=== PATIENT | female | born 1930 | race Caucasian/White ===

== ENCOUNTER 2016-09-14 08:14 | Inpatient (IN) | payer MEDICARE, BC, OTHER ==
[2016-08-31 10:47] VITALS: BMI 24.2
[2016-08-31 11:31] VITALS: BP_SYST 108; RESP 20; TEMP 98.2
[2016-09-11 12:52] VITALS: BMI 24.2
[~2016-09-14] VITALS: Ht 160 cm; Wt 62.0 kg
[2016-09-14] VITALS (18 sets, daily range): BP systolic 59–133; RESP 11–20; TEMP 97.3–98.6; Ht 160 cm; Wt 62.0 kg
[2016-09-14] MEDS ORDERED: ROPIVACAINE 0.5% 139 MG, EPINEPHrine 1:1,000 0.2 MG, KETOROLAC INJ 30 MG, MORPHINE 10 MG SUBQ ONE ×4 (08:20)
[2016-09-14] MEDS ORDERED: VANCOMYCIN 1,000 MG in SODIUM CHLORIDE 0.9% 250 ML IV ONE (08:25)
[2016-09-14] MEDS ORDERED: SODIUM CHLORIDE 0.9% IV ONE ×4 (08:30)
[2016-09-14] MEDS ORDERED: TRANEXAMIC ACID IV ONE ×4 (08:30)
[2016-09-14] MEDS ORDERED: LIDOCAINE 1% BUFFERED 1 ML SYR INTRADERM PRN (08:35)
[2016-09-14] MEDS ORDERED: MIDAZOLAM 2 MG/2 ML INJ IV ONE (08:35)
[2016-09-14] MEDS ORDERED: LACT RINGERS 1,000 ML IV SCH (08:35)
[2016-09-14] MEDS ORDERED: GLYCOPYRROLATE 0.2 MG/ML VIAL IV ONE ×2 (08:35→09:55)
[2016-09-14] MEDS ORDERED: ONDANSETRON 4 MG VIAL IV PRN (09:45)
[2016-09-14] MEDS ORDERED: MEPERIDINE 25 MG/ML IV PRN (09:45)
[2016-09-14] MEDS ORDERED: OXYCODONE 5 MG TAB PO PRN (09:45)
[2016-09-14] MEDS ORDERED: MORPHINE 2 MG/ML SYR IV PRN (09:45)
[2016-09-14] MEDS ORDERED: MORPHINE 4 MG/ML SYR IV PRN (09:45)
[2016-09-14] MEDS ORDERED: DILAUDID 1 MG/ML AMP IV PRN (09:45)
[2016-09-14] MEDS ORDERED: DEXAMETHASONE 4 MG/ML VIAL IV ONE (09:55)
[2016-09-14] MEDS ORDERED: ACETAMINOPHEN 1,000 MG/100 ML IV ONE (09:55)
[2016-09-14] MEDS ORDERED: FENTANYL 100 MCG/2 ML AMP IV ONE (09:55)
[2016-09-14] MEDS ORDERED: PROPOFOL 20 ML PER ML IV ONE (09:55)
[2016-09-14] MEDS ORDERED: NEOSTIGMINE 10 MG/10 ML VIAL IV ONE (09:55)
[2016-09-14] MEDS ORDERED: ROCURONIUM 50 MG VIAL IV ONE (09:55)
[2016-09-14] MEDS ORDERED: LIDOCAINE 2% SYR 5 ML IV ONE (09:55)
[2016-09-14] MEDS ORDERED: PHENYLEPHRINE 10 MG/ML VIAL IV ONE (09:55)
[2016-09-14] MEDS ORDERED: ONDANSETRON 4 MG VIAL IV PUSH ONE (09:55)
[2016-09-14] MEDS ORDERED: ROPIVACAINE 5 MG/ML 30 ML EPIDURAL ONE (10:01)
[2016-09-14] MEDS ORDERED: D5-1/2-NS W/KCL 20MEQ/L 1,000 ML IV SCH (11:45)
[2016-09-14] MEDS ORDERED: MAG HYDROX 30 ML UDC PO PRN (11:45)
[2016-09-14] MEDS ORDERED: ONDANSETRON 4 MG TAB PO PRN (11:45)
[2016-09-14] MEDS ORDERED: SALINE FLUSH 10 ML FLUSH PRN (11:45)
[2016-09-14] MEDS ORDERED: TEMAZEPAM 7.5 MG CAP PO PRN (11:45)
[2016-09-14] MEDS: PHARMACY TO DOSE VANCOMYCIN IV SCH ×2 (13:16→23:45)
[2016-09-14] MEDS ORDERED: BACITRACIN 50,000 UNITS INJ IRRIG ONE (14:00)
[2016-09-14] MEDS ORDERED: SUCRALFATE 1 GM TAB PO SCH (17:00)
[2016-09-14] MEDS: SALINE FLUSH 10 ML FLUSH SCH (20:00)
[2016-09-14] MEDS: ONDANSETRON 4 MG VIAL IV PRN (20:44)
[2016-09-14] MEDS: VANCOMYCIN 1,000 MG in SODIUM CHLORIDE 0.9% 250 ML IV SCH (20:45)
[2016-09-14] MEDS: MORPHINE 4 MG/ML SYR IV PRN (20:45)
[2016-09-14] MEDS: DOCUSATE SOD 100 MG CAP PO SCH (21:00)
[2016-09-15] VITALS (8 sets, daily range): BP systolic 109–132; RESP 16–20; TEMP 97.4–98.3
[2016-09-15] MEDS: MORPHINE 4 MG/ML SYR IV PRN ×2 (02:29→05:44)
[2016-09-15] MEDS: ONDANSETRON 4 MG VIAL IV PRN (02:29)
[2016-09-15] MEDS ORDERED: SUCRALFATE 1GM/10ML SUSP PO ONE (03:00)
[2016-09-15] MEDS ORDERED: MISSING DOSE XX ONE (03:20)
[2016-09-15] MEDS: KETOROLAC 15 MG/ML VIAL IV PRN ×2 (03:35→14:58)
[2016-09-15] MEDS: PROMETHAZINE 25 MG TAB PO PRN (03:35)
[2016-09-15] MEDS: SODIUM CHLORIDE 0.9% FLUSH BAG 500 ML IV SCH ×2 (05:43→22:50)
[2016-09-15] MEDS: FONDAPARINUX 2.5 MG SYR SUBQ SCH (05:45)
[2016-09-15] MEDS: MORPHINE 2 MG/ML SYR IV PRN ×2 (06:44→19:21)
[2016-09-15] MEDS: SUCRALFATE 1GM/10ML SUSP PO SCH ×3 (06:44→15:02)
[2016-09-15] MEDS: SALINE FLUSH 10 ML FLUSH SCH ×2 (08:00→21:23)
[2016-09-15] MEDS: DOCUSATE SOD 100 MG CAP PO SCH ×2 (08:16→21:22)
[2016-09-15] MEDS: VANCOMYCIN 1,000 MG in SODIUM CHLORIDE 0.9% 250 ML IV SCH (08:16)
[2016-09-15] MEDS: SENNA 8.6 MG TAB PO SCH ×2 (08:16→21:22)
[2016-09-15] MEDS: MULTIVITS/MINERALS (THERAGRAN M) TAB PO SCH (08:16)
[2016-09-15] MEDS: POLYETHYLENE GLYCOL 17 GM PACKET PO SCH (08:16)
[2016-09-15] MEDS: MAG HYDROX 30 ML UDC PO SCH (08:16)
[2016-09-15] MEDS ORDERED: BISACODYL 10 MG SUPP RECTAL PRN (12:20)
[2016-09-15] MEDS ORDERED: FLEET ENEMA 132 ML BTL RECTAL PRN (12:20)
[2016-09-15] MEDS: Propranolol 10 MG TAB PO SCH (21:22)
[2016-09-16] MEDS: MORPHINE 2 MG/ML SYR IV PRN (00:18)
[2016-09-16] MEDS: KETOROLAC 15 MG/ML VIAL IV PRN (01:32)
[2016-09-16 04:29] VITALS: BP_SYST 102; RESP 18; TEMP 98.1
[2016-09-16] MEDS: SUCRALFATE 1GM/10ML SUSP PO SCH ×3 (05:58→16:43)
[2016-09-16] MEDS: FONDAPARINUX 2.5 MG SYR SUBQ SCH (05:59)
[2016-09-16 07:31] VITALS: BP_SYST 107; RESP 14; TEMP 98.2
[2016-09-16] MEDS: MAG HYDROX 30 ML UDC PO SCH (08:04)
[2016-09-16] MEDS: SENNA 8.6 MG TAB PO SCH ×2 (08:04→20:47)
[2016-09-16] MEDS: MULTIVITS/MINERALS (THERAGRAN M) TAB PO SCH (08:04)
[2016-09-16] MEDS: SALINE FLUSH 10 ML FLUSH SCH ×2 (08:04→20:47)
[2016-09-16] MEDS: Propranolol 10 MG TAB PO SCH ×2 (08:04→20:47)
[2016-09-16] MEDS: DOCUSATE SOD 100 MG CAP PO SCH ×2 (08:04→20:47)
[2016-09-16] MEDS: POLYETHYLENE GLYCOL 17 GM PACKET PO SCH (08:05)
[2016-09-16 11:32] VITALS: BP_SYST 96; RESP 16; TEMP 98.1
[2016-09-16 15:23] VITALS: BP_SYST 115; RESP 16; TEMP 98.3
[2016-09-16] MEDS ORDERED: MISSING DOSE XX ONE (17:55)
[2016-09-16] MEDS: PROMETHAZINE 25 MG TAB PO PRN (18:09)
[2016-09-16 19:45] VITALS: BP_SYST 124; RESP 18; TEMP 98.2
[2016-09-16] MEDS ORDERED: ZOLPIDEM 5 MG TAB PO PRN (21:10)
[2016-09-16 22:44] VITALS: BP_SYST 121; RESP 16; TEMP 98.3
[2016-09-17] VITALS (7 sets, daily range): BP systolic 80–126; RESP 16–20; TEMP 97.4–98.1
[2016-09-17] MEDS: SODIUM CHLORIDE 0.9% FLUSH BAG 500 ML IV SCH ×2 (06:00→23:34)
[2016-09-17] MEDS: SUCRALFATE 1GM/10ML SUSP PO SCH ×3 (06:44→16:07)
[2016-09-17] MEDS: FONDAPARINUX 2.5 MG SYR SUBQ SCH (06:44)
[2016-09-17] MEDS: SALINE FLUSH 10 ML FLUSH SCH ×2 (08:00→20:00)
[2016-09-17] MEDS: DOCUSATE SOD 100 MG CAP PO SCH ×2 (09:00→20:54)
[2016-09-17] MEDS: SENNA 8.6 MG TAB PO SCH ×2 (09:00→20:54)
[2016-09-17] MEDS: MAG HYDROX 30 ML UDC PO SCH (09:00)
[2016-09-17] MEDS: POLYETHYLENE GLYCOL 17 GM PACKET PO SCH (09:00)
[2016-09-17] MEDS: MULTIVITS/MINERALS (THERAGRAN M) TAB PO SCH (09:59)
[2016-09-17] MEDS: Propranolol 10 MG TAB PO SCH ×2 (10:00→20:58)
[2016-09-18 04:31] VITALS: BP_SYST 148; TEMP 98.1
[2016-09-18 04:32] VITALS: RESP 20
[2016-09-18] MEDS: SUCRALFATE 1GM/10ML SUSP PO SCH ×3 (06:18→16:57)
[2016-09-18] MEDS: FONDAPARINUX 2.5 MG SYR SUBQ SCH (06:19)
[2016-09-18 07:00] VITALS: BP_SYST 119; RESP 18; TEMP 98.2
[2016-09-18] MEDS: SALINE FLUSH 10 ML FLUSH SCH (07:49)
[2016-09-18] MEDS: SENNA 8.6 MG TAB PO SCH (09:00)
[2016-09-18] MEDS: POLYETHYLENE GLYCOL 17 GM PACKET PO SCH (09:00)
[2016-09-18] MEDS: MAG HYDROX 30 ML UDC PO SCH (09:00)
[2016-09-18] MEDS: MULTIVITS/MINERALS (THERAGRAN M) TAB PO SCH (09:42)
[2016-09-18] MEDS: Propranolol 10 MG TAB PO SCH (09:42)
[2016-09-18] MEDS: DOCUSATE SOD 100 MG CAP PO SCH (09:43)
[2016-09-18 11:38] VITALS: BP_SYST 134; RESP 18; TEMP 97.9
[2016-09-18 14:50] VITALS: BP_SYST 134; RESP 18; TEMP 97.9
[2016-09-18 15:42] VITALS: BP_SYST 126; RESP 18; TEMP 97.8
== END 2016-09-18 17:30 | DRG 470 ==
LOC: ENRESERVDT → ENRESERVTM → ENPENDDIS 08:14 → SDS 08:14 → 2NO 12:17
PROVIDERS: ADMIT Internal Medicine Hematology & Oncology; ATTEND Internal Medicine Hematology & Oncology
PROC: 0SRD0J9 Replacement of Left Knee Joint with Synthetic Substitute, Cemented, Open Approach (ICD-10-PCS; principal; 2016-09-14 09:14)
DX: M17.12 Unilateral primary osteoarthritis, left knee (principal); J44.9 Chronic obstructive pulmonary disease, unspecified; I48.0 Paroxysmal atrial fibrillation; K21.9 Gastro-esophageal reflux disease without esophagitis; K44.9 Diaphragmatic hernia without obstruction or gangrene; I10 Essential (primary) hypertension; Z80.9 Family history of malignant neoplasm, unspecified; Z83.3 Family history of diabetes mellitus; Z82.3 Family history of stroke; Z82.49 Family history of ischemic heart disease and other diseases of the circulatory system; D63.8 Anemia in other chronic diseases classified elsewhere; D50.9 Iron deficiency anemia, unspecified
CPT/HCPCS: 80048; 85014; 85018; 85025; 86850; 86900; 86901; 93005; 94762; 94799

== ENCOUNTER 2016-09-17 13:13 | Inpatient (IN) | payer MEDICARE, BC, OTHER ==
[~2016-09-17] VITALS: Ht 160 cm; Wt 64.8 kg
[~2016-09-17 13:13] MED LIST: PNEUMO VAC 25 MCG/0.5 ML VL IM.VACC ONE
[2016-09-17] MEDS ORDERED: TUBERCULIN PPD 5 UNIT SYR ID.VACC ONE (21:00)
[2016-09-18] MEDS ORDERED: TUBERCULIN PPD 5 UNIT SYR ID.VACC ONE (17:45)
[2016-09-18] MEDS: TRAMADOL 50 MG TAB PO SCH ×2 (17:48→21:36)
[2016-09-18] MEDS: SUCRALFATE 1GM/10ML SUSP PO SCH (17:48)
[2016-09-18] MEDS ORDERED: PNEUMO VAC 25 MCG/0.5 ML VL IM.VACC ONE (17:50)
[2016-09-18 19:05] VITALS: BP_SYST 118; RESP 18; TEMP 98.1
[2016-09-18 19:07] VITALS: BP_SYST 120
[2016-09-18] MEDS ORDERED: TUBERCULIN PPD 5 UNIT SYR ID.VACC SCH (21:00)
[2016-09-18] MEDS: DIPHENHYDRAMINE 25 MG CAP PO SCH (21:34)
[2016-09-18] MEDS: MELOXICAM 7.5 MG TAB PO SCH (21:34)
[2016-09-18] MEDS: Propranolol 10 MG TAB PO SCH (21:37)
[2016-09-18] MEDS: DOCUSATE SOD 100 MG CAP PO SCH (21:37)
[2016-09-19 05:01] VITALS: BP_SYST 129
[2016-09-19 05:02] VITALS: RESP 20; TEMP 98.3
[2016-09-19] MEDS: SUCRALFATE 1GM/10ML SUSP PO SCH ×2 (05:58→16:04)
[2016-09-19] MEDS: ASPIRIN EC 81 MG TAB PO SCH (08:44)
[2016-09-19] MEDS: MULTIVITS/MIN (OCUVITE) TAB PO SCH (08:45)
[2016-09-19] MEDS: DOCUSATE SOD 100 MG CAP PO SCH ×2 (08:45→21:18)
[2016-09-19] MEDS: MELOXICAM 7.5 MG TAB PO SCH (08:45)
[2016-09-19] MEDS: MULTIVITS/MINERALS (THERAGRAN M) TAB PO SCH (08:45)
[2016-09-19] MEDS: TRAMADOL 50 MG TAB PO SCH ×3 (08:46→21:19)
[2016-09-19] MEDS: FONDAPARINUX 2.5 MG SYR SUBQ SCH (08:47)
[2016-09-19] MEDS: Propranolol 10 MG TAB PO SCH ×2 (08:47→21:17)
[2016-09-19] MEDS ORDERED: ALU/MAG/SIM 30 ML UDC PO PRN (09:55)
[2016-09-19 14:12] VITALS: BP_SYST 124; RESP 20; TEMP 97.5
[2016-09-19 16:01] VITALS: BP_SYST 141; RESP 20; TEMP 98
[2016-09-19] MEDS ORDERED: SKIN TEST: READ AND RECORD XX SCH (21:00)
[2016-09-19] MEDS: SIMETHICONE 80 MG CHEW TAB PO PRN (21:18)
[2016-09-19] MEDS: DIPHENHYDRAMINE 25 MG CAP PO SCH (21:18)
[2016-09-20 00:12] VITALS: BP_SYST 127; RESP 18; TEMP 98.6
[2016-09-20 00:13] VITALS: TEMP 98.6
[2016-09-20] MEDS: SUCRALFATE 1GM/10ML SUSP PO SCH ×2 (05:57→16:09)
[2016-09-20] MEDS: PANTOPRAZOLE 40 MG TAB PO SCH (05:57)
[2016-09-20] MEDS: DOCUSATE SOD 100 MG CAP PO SCH ×2 (08:13→21:12)
[2016-09-20] MEDS: MULTIVITS/MIN (OCUVITE) TAB PO SCH (08:13)
[2016-09-20] MEDS: TRAMADOL 50 MG TAB PO SCH ×4 (08:14→21:12)
[2016-09-20] MEDS: SIMETHICONE 80 MG CHEW TAB PO PRN ×3 (08:15→21:12)
[2016-09-20] MEDS: Propranolol 10 MG TAB PO SCH ×2 (08:15→21:13)
[2016-09-20] MEDS: MULTIVITS/MINERALS (THERAGRAN M) TAB PO SCH (08:15)
[2016-09-20] MEDS: ASPIRIN EC 81 MG TAB PO SCH (08:15)
[2016-09-20] MEDS: FONDAPARINUX 2.5 MG SYR SUBQ SCH (08:16)
[2016-09-20 09:34] VITALS: BP_SYST 149; RESP 20; TEMP 98.4
[2016-09-20 16:55] VITALS: BP_SYST 131; RESP 18; TEMP 97.8
[2016-09-20 19:42] VITALS: BP_SYST 119; RESP 16; TEMP 97.8
[2016-09-20] MEDS ORDERED: SKIN TEST: READ AND RECORD XX SCH (21:00)
[2016-09-20] MEDS: DIPHENHYDRAMINE 25 MG CAP PO SCH (21:12)
[2016-09-21 02:30] VITALS: BP_SYST 135; RESP 18; TEMP 99.1
[2016-09-21 02:31] VITALS: TEMP 99.1
[2016-09-21] MEDS: PANTOPRAZOLE 40 MG TAB PO SCH (06:11)
[2016-09-21] MEDS: SUCRALFATE 1GM/10ML SUSP PO SCH ×2 (06:12→16:04)
[2016-09-21] MEDS: MULTIVITS/MIN (OCUVITE) TAB PO SCH (08:18)
[2016-09-21] MEDS: SIMETHICONE 80 MG CHEW TAB PO PRN ×3 (08:18→22:02)
[2016-09-21] MEDS: DOCUSATE SOD 100 MG CAP PO SCH ×2 (08:18→22:00)
[2016-09-21] MEDS: ASPIRIN EC 81 MG TAB PO SCH (08:18)
[2016-09-21] MEDS: MULTIVITS/MINERALS (THERAGRAN M) TAB PO SCH (08:18)
[2016-09-21] MEDS: FONDAPARINUX 2.5 MG SYR SUBQ SCH (08:20)
[2016-09-21] MEDS: Propranolol 10 MG TAB PO SCH ×2 (08:20→22:00)
[2016-09-21] MEDS: TRAMADOL 50 MG TAB PO SCH ×4 (08:21→22:08)
[2016-09-21] MEDS: CEPACOL LOZENGE PO PRN ×3 (12:24→22:00)
[2016-09-21 12:30] VITALS: BP_SYST 122; RESP 18; TEMP 97.8
[2016-09-21 14:45] VITALS: Ht 160 cm; Wt 64.8 kg
[2016-09-21 16:33] VITALS: BP_SYST 131; RESP 18; TEMP 98.6
[2016-09-21] MEDS: DIPHENHYDRAMINE 25 MG CAP PO SCH (22:00)
[2016-09-22 02:30] VITALS: BP_SYST 132; RESP 18; TEMP 98.7
[2016-09-22] MEDS: SUCRALFATE 1GM/10ML SUSP PO SCH ×2 (06:08→16:04)
[2016-09-22] MEDS: PANTOPRAZOLE 40 MG TAB PO SCH (06:08)
[2016-09-22] MEDS: TRAMADOL 50 MG TAB PO SCH (08:48)
[2016-09-22] MEDS: DOCUSATE SOD 100 MG CAP PO SCH ×2 (08:49→20:57)
[2016-09-22] MEDS: ASPIRIN EC 81 MG TAB PO SCH (08:49)
[2016-09-22] MEDS: MULTIVITS/MINERALS (THERAGRAN M) TAB PO SCH (08:49)
[2016-09-22] MEDS: Propranolol 10 MG TAB PO SCH ×2 (08:49→20:57)
[2016-09-22] MEDS: MULTIVITS/MIN (OCUVITE) TAB PO SCH (08:50)
[2016-09-22] MEDS: FONDAPARINUX 2.5 MG SYR SUBQ SCH (08:51)
[2016-09-22] MEDS ORDERED: MISSING DOSE XX ONE (10:10)
[2016-09-22 10:24] VITALS: BP_SYST 126; RESP 18; TEMP 98.8
[2016-09-22] MEDS ORDERED: TRAMADOL 50 MG TAB PO PRN (13:00)
[2016-09-22] MEDS: SIMETHICONE 80 MG CHEW TAB PO PRN ×2 (13:06→17:56)
[2016-09-22 14:09] VITALS: BP_SYST 131; RESP 18; TEMP 98.1
[2016-09-22 16:44] VITALS: BP_SYST 122; RESP 20; TEMP 98.1
[2016-09-22] MEDS: CEPACOL LOZENGE PO PRN (17:56)
[2016-09-22] MEDS: DIPHENHYDRAMINE 25 MG CAP PO SCH (20:57)
[2016-09-23 05:15] VITALS: BP_SYST 150
[2016-09-23 05:20] VITALS: BP_SYST 156; RESP 20; TEMP 97.7
[2016-09-23 05:45] VITALS: BP_SYST 152
[2016-09-23] MEDS: PANTOPRAZOLE 40 MG TAB PO SCH (06:17)
[2016-09-23] MEDS: SUCRALFATE 1GM/10ML SUSP PO SCH ×2 (06:17→15:39)
[2016-09-23] MEDS: MULTIVITS/MIN (OCUVITE) TAB PO SCH (08:23)
[2016-09-23] MEDS: Propranolol 10 MG TAB PO SCH ×2 (08:24→21:01)
[2016-09-23] MEDS: ASPIRIN EC 81 MG TAB PO SCH (08:24)
[2016-09-23] MEDS: DOCUSATE SOD 100 MG CAP PO SCH ×2 (08:24→21:00)
[2016-09-23] MEDS: MULTIVITS/MINERALS (THERAGRAN M) TAB PO SCH (08:24)
[2016-09-23] MEDS: FONDAPARINUX 2.5 MG SYR SUBQ SCH (08:26)
[2016-09-23 11:38] VITALS: BP_SYST 141; RESP 20; TEMP 97.4
[2016-09-23] MEDS ORDERED: MISSING DOSE XX ONE (12:55)
[2016-09-23] MEDS: SIMETHICONE 80 MG CHEW TAB PO PRN (13:51)
[2016-09-23] MEDS: VALSARTAN 80 MG TAB PO SCH (15:39)
[2016-09-23 16:34] VITALS: BP_SYST 129; RESP 20; TEMP 97.8
[2016-09-23] MEDS: DIPHENHYDRAMINE 25 MG CAP PO SCH (21:00)
[2016-09-23] MEDS: CEPACOL LOZENGE PO PRN (21:05)
[2016-09-24 05:16] VITALS: BP_SYST 142; RESP 20; TEMP 98.2
[2016-09-24] MEDS: PANTOPRAZOLE 40 MG TAB PO SCH (06:17)
[2016-09-24] MEDS: SUCRALFATE 1GM/10ML SUSP PO SCH ×2 (06:17→16:36)
[2016-09-24] MEDS: DOCUSATE SOD 100 MG CAP PO SCH ×2 (08:49→21:00)
[2016-09-24] MEDS: Propranolol 10 MG TAB PO SCH ×2 (08:50→21:01)
[2016-09-24] MEDS: MULTIVITS/MIN (OCUVITE) TAB PO SCH (08:50)
[2016-09-24] MEDS: ASPIRIN EC 81 MG TAB PO SCH (08:50)
[2016-09-24] MEDS: VALSARTAN 80 MG TAB PO SCH (08:50)
[2016-09-24] MEDS: MULTIVITS/MINERALS (THERAGRAN M) TAB PO SCH (08:50)
[2016-09-24] MEDS: FONDAPARINUX 2.5 MG SYR SUBQ SCH (08:51)
[2016-09-24 10:49] VITALS: BP_SYST 129; RESP 20; TEMP 99
[2016-09-24] MEDS: SIMETHICONE 80 MG CHEW TAB PO PRN (12:51)
[2016-09-24 16:04] VITALS: BP_SYST 122; TEMP 98.3
[2016-09-24] MEDS ORDERED: TUBERCULIN PPD 5 UNIT SYR ID.VACC ONE (21:00)
[2016-09-24] MEDS: DIPHENHYDRAMINE 25 MG CAP PO SCH (21:00)
[2016-09-25 00:07] VITALS: BP_SYST 129
[2016-09-25 00:08] VITALS: RESP 18; TEMP 98.5
[2016-09-25] MEDS: PANTOPRAZOLE 40 MG TAB PO SCH (06:20)
[2016-09-25] MEDS: SUCRALFATE 1GM/10ML SUSP PO SCH ×2 (06:20→15:41)
[2016-09-25] MEDS: MULTIVITS/MIN (OCUVITE) TAB PO SCH (08:20)
[2016-09-25] MEDS: VALSARTAN 80 MG TAB PO SCH (08:20)
[2016-09-25] MEDS: Propranolol 10 MG TAB PO SCH (08:21)
[2016-09-25] MEDS: ASPIRIN EC 81 MG TAB PO SCH (08:21)
[2016-09-25] MEDS: MULTIVITS/MINERALS (THERAGRAN M) TAB PO SCH (08:21)
[2016-09-25] MEDS: DOCUSATE SOD 100 MG CAP PO SCH (08:21)
[2016-09-25] MEDS: FONDAPARINUX 2.5 MG SYR SUBQ SCH (08:22)
[2016-09-25 10:30] VITALS: BP_SYST 133; RESP 20; TEMP 97.7
[2016-09-25 15:49] VITALS: BP_SYST 133; RESP 20; TEMP 97.7
[2016-09-25] MEDS ORDERED: TUBERCULIN PPD 5 UNIT SYR ID.VACC SCH (21:00)
== END 2016-09-25 15:49 | disposition home health service (06) | DRG 561 ==
LOC: ENPENDDIS 09-18 17:35 → NF 09-18 17:35
PROVIDERS: ADMIT Internal Medicine Hematology & Oncology; ATTEND Internal Medicine Hematology & Oncology
DX: Z47.1 Aftercare following joint replacement surgery (principal); J44.9 Chronic obstructive pulmonary disease, unspecified; Z96.652 Presence of left artificial knee joint; R26.2 Difficulty in walking, not elsewhere classified
CPT/HCPCS: 36415; 80048; 85025; 86580